=== PATIENT | female | born 1990 | race African-American/Black ===

== ENCOUNTER 2018-06-07 17:43 | Emergency (ER) | payer SELFPAY ==
[~2018-06-07] VITALS: Ht 165.1 cm; Wt 70.0 kg
[2018-06-08 01:38] LABS: CLARITY URINE CLEAR (CLEAR); COLOR URINE YELLOW (YELLOW); KETONES URINE NEGATIVE (NEGATIVE); LEUKOCYTE ESTERASE URINE 2+ (NEGATIVE); NITRITE URINE NEGATIVE (NEGATIVE); OCCULT BLOOD URINE NEGATIVE (NEGATIVE); PH URINE 6.5 (4.5-8.0); PROTEIN URINE NEGATIVE (NEGATIVE); SPECIFIC GRAVITY URINE 1.025 (1.005-1.030); UROBILINOGEN URINE 0.2 E.U./dL (0.2-1.0)
[2018-06-08] MEDS ORDERED: CEFTRIAXONE SODIUM 250 MG/VIAL IM ONE (02:00)
[2018-06-08] MEDS ORDERED: AZITHROMYCIN 500 MG TABLET PO ONE (02:00)
[2018-06-08] MEDS ORDERED: FLUCONAZOLE 100MG TABLET PO ONE (02:15)
[2018-06-08 03:00] VITALS: BP 104/80
== END 2018-06-08 03:00 | disposition home or self-care (01) ==
LOC: ER 17:43
DX: B37.3 Candidiasis of vulva and vagina (principal); Z88.3 Allergy status to other anti-infective agents
CPT/HCPCS: 81003; 81025; 96372; 99283; J0696